=== PATIENT | male | born 1945 ===

== ENCOUNTER 2020-10-16 10:06 | Outpatient (REF) | payer MEDICARE, MEDICAID, SELFPAY ==
--- NOTE | 2020-10-16 13:06 | MHC.AU.P13 ---
Hearing Aid Evaluation- Binaural Date of Visit: 10/16/20 Mold Capper Used: Not Applicable Description of Hearing: Left ear - Mild to moderate sensorineural hearing loss with 72% speech understanding at a level of 80 dB HL Right ear - Mild to moderately-severe sensorineural hearing loss with no discrimination ability. Summary: Discussed BI-CROS vs. binaural hearing aids due to fact patient has no speech discrimination ability in the right ear. Discussed MARIE vs custom [id number] styles. Patient wants to try the BI-CROS MARIE style. Given patient has decreased hand dexterity, recommend rechargeable hearing aids. Hearing Instrument Selection: Right Ear: Social Services Technician: [employer] Model: CROS MARIE-R Battery Size: Rechargeable Color: Slate Debeader: #3 Type of Dome: Medium Open Type of Mold: Left Ear: Social Services Technician: [employer] Model: Jose 1600 MARIE-R Battery Size: Rechargeable Color: Slate Debeader: #3 Type of Dome: Medium Closed Recommendations: Recommendations: Medical clearance for hearing aids received from Dr. Baldev Gilbert Will schedule a Hearing Aid Fitting appointment when all materials are received. Diagnosis Code(s): Primary Diagnosis: H90.3 Bilateral Sensorineural Hearing Loss Services Performed: Hearing Aid Evaluation Signature: Provider: Jorden Rodriguez, LILLIAM-A
== END 2020-10-16 10:07 | disposition home or self-care (01) ==
LOC: HO.HAP 10:06
PROVIDERS: PCP Internal Medicine; Referring Provider Internal Medicine; Visit Provider Internal Medicine
DX: Z46.1 Encounter for fitting and adjustment of hearing aid (principal); H90.3 Sensorineural hearing loss, bilateral
CPT/HCPCS: 92591

== ENCOUNTER 2020-11-27 10:08 | Outpatient (REF) | payer MEDICARE, MEDICAID, SELFPAY | END 2020-11-27 10:09 | disposition home or self-care (01) | LOC: HO.HAP 10:08 | PROVIDERS: Visit Provider Internal Medicine | DX: Z46.1 Encounter for fitting and adjustment of hearing aid (principal); H90.3 Sensorineural hearing loss, bilateral | CPT/HCPCS: V5011; V5221; V5240 ==

== ENCOUNTER 2020-12-18 10:26 | Outpatient (REF) | payer MEDICARE, MEDICAID, SELFPAY | END 2020-12-18 10:27 | disposition home or self-care (01) | LOC: HO.HAP 10:26 | PROVIDERS: Visit Provider Internal Medicine | DX: Z46.1 Encounter for fitting and adjustment of hearing aid (principal); H90.3 Sensorineural hearing loss, bilateral | CPT/HCPCS: V5275 ==

== ENCOUNTER 2021-01-18 12:37 | Outpatient (REF) | payer MEDICARE, MEDICAID, SELFPAY | END 2021-01-18 12:38 | disposition home or self-care (01) | LOC: HO.HAP 12:37 | PROVIDERS: Visit Provider Internal Medicine | DX: Z46.1 Encounter for fitting and adjustment of hearing aid (principal); H90.3 Sensorineural hearing loss, bilateral | CPT/HCPCS: V5264 ==